=== PATIENT | male | born 1945 | race Caucasian/White ===

== ENCOUNTER → 2016-10-12 | Outpatient (CLI) | payer MEDICARE, BC ==
[~2016-10-12] MED LIST: BACITRACIN15 G1 TP; COLACE-DPS100 MG PO; FLOMAX DPS0.4 MG PO; IBUPROFEN200 MG PO; KLONOPIN DPS0.5 MG PO; MAPAP PM (TYLEN1 TAB PO; MELATONIN10 MG PO; MILK OF MAGNESI10 ML PO; NEURONTIN DPS300 MG PO; NITROSTAT0.4 MG SL; OMEGA-3 DPS1000 MG PO; PERCOCET 5 DPS1 TAB PO; PROTONIX40 MG PO; SENOKOT DPS8.6 MG PO; THERA1 EACH PO; TYLENOL DPS325 MG PO; VALIUM-DPS5 MG PO; VITAMIN D-32000 UNI1 PO; XALATAN2.5 ML OU; ZESTRIL DPS20 MG PO
== END | disposition home or self-care (01) ==
LOC: PTH.S 09:15
DX: Z01.818 Encounter for other preprocedural examination (principal); I10 Essential (primary) hypertension

== ENCOUNTER 2016-10-18 05:21 | Day surgery (SDC) | payer MEDICARE, BC ==
[~2016-10-18] VITALS: Ht 182.9 cm; Wt 118.9 kg
--- NOTE | 2016-10-25 12:04 | OR ---
ADMIT: 10/18/2016 RM/LOC: [facility] MR#: [id number] [address] [id number] RISA ESTEVEZ [facility] [address] [place] [address] Operative/Delivery Room Report SEX: M AGE: 71 : 1945 SURGERY DATE: 10/18/2016 SURGEON: Crow Umaña MD PREOPERATIVE DIAGNOSIS: Severe lumbar stenosis, 4-5, 5-1, predominantly on the left with radiculopathy and neurogenic claudication. POSTOPERATIVE DIAGNOSIS: Severe lumbar stenosis, 4-5, 5-1, predominantly on the left with radiculopathy and neurogenic claudication. PROCEDURES: Minimally invasive lumbar 4-5 and lumbar 5, sacral 1 laminectomy approach to the left with medial facetectomy, especially at lumbar 4-5 on the left for decompression with resection of synovial cyst material as well as overgrown ligaments with intraoperative fluoroscopy with physician interpretation of film and intraoperative microscopy with microsurgical dissection technique. DESCRIPTION: After gaining informed consent, the patient was taken to the operative theater, placed on general endotracheal anesthesia in supine position and turned prone on a Jayme table with all pressure points purposely padded prior to performing the procedure. He was prepped and draped in usual sterile fashion. A time-out was utilized to ascertain the correct site and side of surgery as well as other pertinent patient historical information. Counts were obtained beginning and end of case with no change betwixt two. Antibiotics were given within 1 hour of incision. The area of the pedicle at L5 was noted and the stab incision was fashioned over this which would allow wanding of the tubular retractor system cephalad and caudally covering the L4 through S1 levels. An incision was then fashioned. The thoracodorsal fascia was incised and the tube retractor system was placed down to this area wanding cephalad and caudally and then finally docking it after stripping some of the tissue back at the L5-S1 level approaching this gentleman's pathology from the left. Once this was completed, the microscope was brought in the field and the rest of the case was done with microsurgical dissection technique. Various curettes, rongeurs, and a high-speed drill were utilized to resect off the lamina coming out through the laminofacet junction and undercutting the facet on the left, resecting the ligamentum flavum, and visualizing the thecal sac. At this point, I was able to sound into the ipsilateral L5-S1 neural foramen with resultant fluoroscopy revealing the instrument in that level and able to palpate and sound into the area revealing no further sign of compression. The patient was then tilted slightly allowing access to the contralateral side, undercutting the lamina and out toward the facets, I was able to sound into that neural foramen with no further sign of compression. At this point, the tubular retractor system was wanded cephalad to the L4-5 level and in a similar fashion, this was performed. The lamina was very narrow with a lengthy spinous process and large knobby facet. In the process of resecting this, I had to resect the medial aspect of the facet on that side because of severely overgrown arthritic tissue. At that point after resecting that, I ADMIT: 10/18/2016 RM/LOC: [facility] MR#: [id number] [address] [place] [id number] RISA ESTEVEZ [address] [place] [address] Operative/Delivery Room Report SEX: M AGE: 71 : 1945 was able to sound into the neural foramen with no further sign of compression. At this point, similar to the lower level, I undercut the lamina out towards the facet on the contralateral side sounding into that area revealing no further sign of compression. Much of the compressive etiology in this gentleman was from ligamentous overgrowth which was resected as widely as possible, especially in the lateral recesses which was worst at L4-5. After all this was completed, there appeared to be wide decompression and then I resected the remaining portion of the arch between L4 through S1 resecting that out widely and was able to visualize what appeared to be effectively decompressed thecal sac. There was no sign of complication. Pristine hemostasis was obtained. A 10 mL 0.5% Marcaine was injected in each side of the paraspinous musculature. The thoracodorsal fascia was closed with simple interrupted 2-0 Vicryl, simple, inverted, interrupted 2-0 Vicryl using hypodermic tissue and subcuticular 4-0 Monocryl on the skin. COMPLICATIONS: None. ESTIMATED BLOOD LOSS: Charted. SPECIMEN: Synovial cyst. DISPOSITION: Extubated and taken to postanesthesia care unit. Crow Umaña MD/ roscoe JOB #: [id number] CC: Crow Umaña, Attending Physician Feliz Rosa, Family Physician
[2016-11-19] MEDS ORDERED: THERA1 EACH PO (12:37)
[2016-11-19] MEDS ORDERED: XALATAN2.5 ML OU (12:38)
[2016-11-19] MEDS ORDERED: OMEGA-3 DPS1000 MG PO (12:38)
[2016-11-19] MEDS ORDERED: KLONOPIN DPS0.5 MG PO (12:38)
[2016-11-19] MEDS ORDERED: SENOKOT DPS8.6 MG PO (12:38)
[2016-11-19] MEDS ORDERED: ZESTRIL DPS20 MG PO (12:39)
[2016-11-19] MEDS ORDERED: NEURONTIN DPS300 MG PO (12:39)
[2016-11-19] MEDS ORDERED: MAPAP PM (TYLEN1 TAB PO (12:39)
[2016-11-19] MEDS ORDERED: NITROSTAT0.4 MG SL (12:39)
[2016-11-19] MEDS ORDERED: VITAMIN D-32000 UNI1 PO (12:39)
[2016-11-19] MEDS ORDERED: MELATONIN10 MG PO (12:40)
[2016-11-19] MEDS ORDERED: FLOMAX DPS0.4 MG PO (12:40)
[2016-11-19] MEDS ORDERED: PROTONIX40 MG PO (12:40)
[2016-11-19] MEDS ORDERED: VALIUM-DPS5 MG PO (12:40)
[2016-11-19] MEDS ORDERED: IBUPROFEN200 MG PO (12:40)
[2016-11-19] MEDS ORDERED: PERCOCET 5 DPS1 TAB PO (12:41)
[2016-12-28] MEDS ORDERED: COLACE-DPS100 MG PO (13:29)
[2016-12-28] MEDS ORDERED: MILK OF MAGNESI10 ML PO (13:29)
[2016-12-28] MEDS ORDERED: TYLENOL DPS325 MG PO (13:29)
[2016-12-28] MEDS ORDERED: BACITRACIN15 G1 TP (13:30)
== END 2016-10-18 13:05 | disposition home or self-care (01) ==
LOC: SSS 05:21 → WOR 05:27 → UNDOADMOB 05:27 → WOR 05:27 → EDSTATUS 12:03 → SSS 13:05
PROC: 01NB0ZZ Release Lumbar Nerve, Open Approach (ICD-10-PCS; principal; 2016-10-18)
DX: M48.06 Spinal stenosis, lumbar region (principal); M54.16 Radiculopathy, lumbar region; I10 Essential (primary) hypertension; G47.30 Sleep apnea, unspecified; Z99.89 Dependence on other enabling machines and devices; Z79.899 Other long term (current) drug therapy; Z98.890 Other specified postprocedural states

== ENCOUNTER 2016-11-16 13:45 | Inpatient (IN) | payer MEDICARE, BC ==
[2016-11-19] MEDS ORDERED: THERA1 EACH PO (12:37)
[2016-11-19] MEDS ORDERED: XALATAN2.5 ML OU (12:38)
[2016-11-19] MEDS ORDERED: OMEGA-3 DPS1000 MG PO (12:38)
[2016-11-19] MEDS ORDERED: KLONOPIN DPS0.5 MG PO (12:38)
[2016-11-19] MEDS ORDERED: SENOKOT DPS8.6 MG PO (12:38)
[2016-11-19] MEDS ORDERED: NITROSTAT0.4 MG SL (12:39)
[2016-11-19] MEDS ORDERED: NEURONTIN DPS300 MG PO (12:39)
[2016-11-19] MEDS ORDERED: MAPAP PM (TYLEN1 TAB PO (12:39)
[2016-11-19] MEDS ORDERED: ZESTRIL DPS20 MG PO (12:39)
[2016-11-19] MEDS ORDERED: VITAMIN D-32000 UNI1 PO (12:39)
[2016-11-19] MEDS ORDERED: IBUPROFEN200 MG PO (12:40)
[2016-11-19] MEDS ORDERED: FLOMAX DPS0.4 MG PO (12:40)
[2016-11-19] MEDS ORDERED: PROTONIX40 MG PO (12:40)
[2016-11-19] MEDS ORDERED: VALIUM-DPS5 MG PO (12:40)
[2016-11-19] MEDS ORDERED: MELATONIN10 MG PO (12:40)
[2016-11-19] MEDS ORDERED: PERCOCET 5 DPS1 TAB PO (12:41)
[2016-12-28] MEDS ORDERED: MILK OF MAGNESI10 ML PO (13:29)
[2016-12-28] MEDS ORDERED: TYLENOL DPS325 MG PO (13:29)
[2016-12-28] MEDS ORDERED: COLACE-DPS100 MG PO (13:29)
[2016-12-28] MEDS ORDERED: BACITRACIN15 G1 TP (13:30)
== END 2016-11-18 10:15 | disposition home or self-care (01) | DRG 552 ==
DX: M51.16 Intervertebral disc disorders with radiculopathy, lumbar region (principal); I10 Essential (primary) hypertension; Z98.1 Arthrodesis status

== ENCOUNTER 2016-12-22 06:34 | Inpatient (IN) | payer MEDICARE, BC ==
[~2016-12-22] VITALS: Ht 182.9 cm; Wt 117.6 kg
[~2016-12-22 06:34] MED LIST changes: -BACITRACIN15 G1 TP; -COLACE-DPS100 MG PO; -MILK OF MAGNESI10 ML PO; -TYLENOL DPS325 MG PO
--- NOTE | 2016-12-24 08:38 | OR ---
ADMIT: 12/22/2016 RM/LOC: [address] [facility] MR#: [id number] [address] [address] RISA ESTEVEZ [facility] [address] [place] [address] Operative/Delivery Room Report SEX: M AGE: 71 : 1945 SURGERY DATE: 12/22/2016 SURGEON: Crow Umaña MD PREOPERATIVE DIAGNOSIS: Radiculopathy from facet hypertrophy and ligamentous overgrowth on the right lumbar 4-5. POSTOPERATIVE DIAGNOSIS: Radiculopathy from facet hypertrophy and ligamentous overgrowth on the right lumbar 4-5. PROCEDURES: 1. Laminectomy and facetectomy at lumbar 4-5 for decompression of thecal sac and neural foramen bilaterally. 2. Placement of bilateral pedicle screws at lumbar 4 and lumbar 5 utilizing DePuy Synthes instrumentation. 3. Placement of structural allograft at the L4-L5 disk space. 4. [place] of autograft through same incision with morcellation and admixture with morcellated allograft with implantation into the posterolateral gutters as well as in the intervertebral space. 5. Transforaminal lumbar arthrodesis, 4-5. 6. Posterolateral lumbar arthrodesis, 4-5. 7. Nonsegmental instrumentation, lumbar 4-5. 8. Intraoperative fluoroscopy with computed tomographic imaging with physician interpretation of film. DESCRIPTION OF PROCEDURE: After gaining informed consent, the patient was taken to the operative theater, placed under general endotracheal anesthesia in supine position. A time-out was utilized to ascertain the correct site and side of surgery as well as other pertinent patient historical information. Counts were obtained at the beginning and end of the case with no change betwixt the two. Antibiotics were given before 1 hour of incision. An incision was fashioned encompassing the area of his minimally invasive incision from his minimally invasive laminectomy previously. This was then very cautiously taken down to the thoracodorsal fascia, which was incised. Once this was incised, subperiosteal dissection was very cautiously carried out coming down to the scarred in area overlying the laminectomy defect on the left from the minimally invasive lumbar laminectomy. Self-retaining retractors were then placed and the facets were discovered and dissected free. This was done at lumbar 4-5 level. Attention was then turned to laminectomy as well as facetectomy, specially on the right side with both medial and lateral portions of facet. There was significant scarring, and medial facetectomy was completed on the left side. Lateral facet was also bitten off where necessary to uncover the neural foramen with some difficulty dissecting through some of the scar tissue. Once this was all completed, pristine hemostasis was obtained and appeared to be acceptable posterior decompression of the thecal sac at the 4-5 level. ADMIT: 12/22/2016 RM/LOC: [address] [facility] MR#: [id number] [address] [place] [id number] RISA ESTEVEZ [address] [place] [address] Operative/Delivery Room Report SEX: M AGE: 71 : 1945 At this point, attention was turned to instrumentation. The fluoroscope was brought into the field and the pedicles of lumbar 4 and lumbar 5 were visualized. Once these were acceptably lined up, the pedicle screws were placed by decorticating the posterior aspect of the pedicle and then sounding down through the pedicle into the vertebral body with a pedicle finder and then a sounding probe, insuring bony anatomy at 360 degrees and at depth. Once this was completed, vancomycin powder-coated DePuy Synthes screws were implanted. Attention was then turned to the transforaminal technique with resection of the disk, this was undertaken with various curettes, rongeurs, and high-speed drill where necessary although not within the disk space. The disk space was widely decompressed. Then, autograft harvested previously was morcellated with morcellated allograft and densely packed into the middle of the intervertebral space at 4-5. An appropriately-sized lordotic spacer was then brought into the field and very cautiously tapped in with no sign of complication. Once this was implanted and it was under compression, due to its size, CT scan was obtained, which appeared revealing the hardware. The posterior instrumentation was then torqued to appropriate settings including cross connector and attention was turned to closure. The rest of the allograft and autograft was packed in the posterolateral gutters after decorticating the area. At this point, pristine hemostasis was obtained. A MIKALA drain was daylighted out. The thoracodorsal fascia was closed with simple interrupted 0 Vicryl. Simple inverted interrupted 2-0 Vicryl was used in the hypodermic tissue, and subcuticular 3-0 Stratafix on the skin with Steri- Strips over that. MIKALA drain was sewn in and stab incisions were fashioned in the paraspinous musculature with the ropivacaine catheter then passed into the paraspinous musculature, loaded with 5 mm 0.5% Marcaine and then connected to the ropivacaine catheter. COMPLICATIONS: None. ESTIMATED BLOOD LOSS: Charted. SPECIMEN: Disk. DISPOSITION: Extubated and taken to postanesthesia care unit. Crow Umaña MD/ roscoe JOB #: [id number] CC: Crow Umaña, Attending Physician Feliz Rosa, Family Physician
--- NOTE | 2016-12-28 11:49 | CO ---
ADMIT: 12/22/2016 RM/LOC: [address] [facility] MR#: [id number] [address] [address] RISA ESTEVEZ [facility] [address] [place] [address] Consultation SEX: M AGE: 71 : 1945 DATE OF CONSULTATION: 12/26/2016 ATTENDING PHYSICIAN: Crow Umaña CONSULTING PHYSICIAN: Alexey Hanley MD SUBJECTIVE: The patient is a 71-year-old white male, who recently has undergone a lumbar fusion. He has been having some hip pain when he takes weight off his hip after weightbearing. He points to the sciatic notch where his pain is. He states he had a fall a couple years ago and has had that pain since then. PHYSICAL EXAMINATION: Shows mainly sciatic notch tenderness. I can flex him 90 degrees. Internally and externally rotate him 30 degrees. No pain in the groin or buttock when doing this. IMAGING: X-rays AP pelvis, AP of the right hip and cross-table right hip were negative for any fractures, dislocation or intraarticular pathology. He has minimal degenerative changes of the hip. ASSESSMENT AND PLAN: Right posterior hip pain. At this point time, this may be more sciatic nerve irritation in its nature to me. I do not see anything going on with his hip. If he starts having more groin pain, more hip pain, it may be reasonable do an MRI scan of his right hip. He can continue using his walker. Alexey Hanley MD/ modl JOB #: [id number] CC: Crwo Umaña, Attending Physician Feliz Rosa, Family Physician
[2016-12-28] MEDS ORDERED: COLACE-DPS100 MG PO (13:29)
[2016-12-28] MEDS ORDERED: MILK OF MAGNESI10 ML PO (13:29)
[2016-12-28] MEDS ORDERED: TYLENOL DPS325 MG PO (13:29)
[2016-12-28] MEDS ORDERED: BACITRACIN15 G1 TP (13:30)
--- NOTE | 2017-01-12 12:15 | DS ---
ADMIT: 12/22/2016 RM/LOC: [address] [facility] MR#: [id number] [facility]#: [id number] [address] [address] RISA ESTEVEZ [facility] [address] [place] [address] General Discharge Summary SEX: M AGE: 71 : 1945 ADMISSION DATE: 12/22/2016 DISCHARGE DATE: 12/27/2016 SERVICE: Neurosurgery. REASON FOR ADMISSION: 1. Lumbar stenosis. 2. Degeneration of the lumbar disc. 3. Lumbar nerve root compression. PROCEDURE: Transforaminal lumbar interbody fusion at lumbar 4-5. HOSPITAL COURSE: Mr. Estevez tolerated his procedure well. Postoperatively, he was taken to the Med/Surg floor for monitoring and care. Postop day #1, he was awake and alert. His vital signs were stable. He was moving all extremities x4 with 5/5 strength. His MIKALA drain was patent with serosanguineous drainage. His On-Q was patent. He did work with Physical Therapy and Occupational Therapy and tolerated this quite well. Postop day #2, he was awake and alert. He was afebrile. His vital signs were stable. He was moving all extremities x4. He was complaining of back pain. His dressing was clean, dry, and intact. His MIKALA drain was patent with just a small amount of serosanguineous drainage and was discontinued without difficulty. His On-Q was discontinued. He was complaining of some constipation and was given a fleets enema. He continued to work with Physical Therapy and Occupational Therapy and tolerated it quite well. Postop day #3, he was feeling a little bit better. His incision was clean, dry, and intact, and there was no drainage to his dressing. He was up in the chair. He was still complaining of some constipation and his enema was repeated. Postop day #4, he was ambulating better with a walker. He was complaining of pain in his right hip. This is especially when he was putting some weight on it. Orthopedics was consulted for his hip pain. They did an x-ray of his right pelvis and his right hip, which showed some degenerative joint disease. They were going to follow him along as an outpatient. Postop day #5, he was awake and alert. He was afebrile. His vital signs were stable. He was moving all extremities x4 with 5/5 strength. His incision was clean, dry, and intact and no hematoma or cerebrospinal fluid accumulation was noted. He was ambulating urinating and defecating per his norm and was requesting discharge home. DISCHARGE CONDITION: Good. MEDICATIONS: 1. Colace 100 mg p.o. b.i.d. 2. Milk of magnesia 10 mL p.o. q.a.m. p.r.n. 3. Bacitracin ointment to incision q.p.m. x14 days. 4. Percocet 5/325, 1 to 2 p.o. q.4 hours p.r.n. 5. Valium 5 mg 1 to 2 tablets p.o. q.8 hours p.r.n. 6. Multivitamin daily. 7. Fish oil 1000 mg daily. 8. Clonazepam 0.5 mg at bedtime. ADMIT: 12/22/2016 RM/LOC: [address] [facility] MR#: [id number] [address] [place] [id number] RISA ESTEVEZ [address] [place] [id number] General Discharge Summary SEX: M AGE: 71 : 1945 9. Gabapentin 600 mg q.i.d. 10.Latanoprost 0.005% one drop both eyes at bedtime. 11.Lisinopril 20 mg daily. 12.Nitrostat 0.4 mg q.5 minutes x3. 13.Senna 8.6 mg daily. 14.Vitamin D 2000 units daily. 15.Tamsulosin 0.4 mg at bedtime. 16.Pantoprazole 40 mg daily. DISCHARGE INSTRUCTIONS: Per Dr. Umaña. He can have a regular diet. He can shower, he should not take any tub baths, he should pat his incision dry. He should not lift anything greater than 15 pounds. He should not take any NSAIDs. He should not drive until he is seen in clinic. He is going to have some home health to help with some physical therapy and occupational therapy for strengthening. He will call with any questions or concerns including neurological worsening, signs or symptoms of infection, or any other issues. FOLLOWUP: He will follow up with Dr. Umaña in the [facility]. DISPOSITION: He was discharged home. Total [id number] time for the discharge planning and care coordination was 30 minutes. Roz Roe APRN / Crow Umaña MD / roscoe JOB #: [id number] CC: Crow Umaña MD, Attending Physician Feliz Rosa MD, Family Physician
== END 2016-12-27 13:45 | disposition home health service (06) | DRG 460 ==
LOC: 5MS 06:34 → WOR 06:34 → 5MS 12:13
PROVIDERS: ADMIT Neurological Surgery
PROC: 0SG0071 Fusion of Lumbar Vertebral Joint with Autologous Tissue Substitute, Posterior Approach, Posterior Column, Open Approach (ICD-10-PCS; principal; 2016-12-22)
PROC: 0SG007J Fusion of Lumbar Vertebral Joint with Autologous Tissue Substitute, Posterior Approach, Anterior Column, Open Approach (ICD-10-PCS; principal; 2016-12-22)
DX: M51.16 Intervertebral disc disorders with radiculopathy, lumbar region (principal); I10 Essential (primary) hypertension; G47.30 Sleep apnea, unspecified